=== PATIENT | female | born 1965 | race Caucasian/White ===

== ENCOUNTER → 2016-08-12 | Outpatient (CLI) | payer BC ==
[2016-08-12 10:53] LABS: Basophils % (A) 1 %; CH 32.4; CHCM 34.3; Eosinophils # (A) 0.1 k/uL (0-0.7); Eosinophils % (A) 2 %; HCT 45.3 % (34.0-46.0); HDW 2.61; Luc # (Auto) 0.19; Luc % (Auto) 3; Lymphocytes # (A) 1.5 k/uL (1.0-4.8); Lymphocytes % (A) 26 %; MCH 31.4 pg (25.0-35.0); MCHC 33.1 g/dL (31.0-37.0); Mean Platelet Volume 6.9; Monocytes # (A) 0.3 k/uL (0-1.0); Monocytes % (A) 5 %; Neutrophils # (A) 3.7 k/uL (1.3-7.7); Neutrophils % (A) 63 %; RBC 4.77 m/uL (3.80-5.40); RDW 12.3 % (11.5-15.5); WBC 5.9 k/uL (3.8-10.6); WBC (Perox) 6.32
== END | disposition home or self-care (01) ==
LOC: LABPAT 10:35
PROVIDERS: ATTEND Orthopaedic Surgery
DX: Z01.818 Encounter for other preprocedural examination (principal); T84.89XA Other specified complication of internal orthopedic prosthetic devices, implants and grafts, initial encounter
CPT/HCPCS: 80051; 85025

== ENCOUNTER 2016-08-19 12:21 | Day surgery (SDC) | payer BC ==
[2016-08-14 13:29] VITALS: BMI 33.9
--- NOTE | 2016-08-18 12:20 | HP ---
DATE OF ADMISSION: CHIEF COMPLAINT: Left ankle pain and swelling. 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 She notes prominence of her lateral hardware. She does have occasional lateral popping along with pain over the prominent hardware. She denies fevers or chills. PAST MEDICAL HISTORY: Significant for type 2 diabetes, hypothyroidism, and depression. PAST SURGICAL HISTORY: Significant for previous fixation of left lateral malleolar ankle fracture and syndesmotic fixation. CURRENT MEDICATIONS: 1. Lisinopril. 2. Mobic. 3. Metformin. 4. Simvastatin. 5. Synthroid. 6. Paroxetine. She notes allergies to PENICILLIN and VIBRAMYCIN. FAMILY HISTORY: Significant for cancer, diabetes and heart disease. SOCIAL HISTORY: Significant for 1/2 pack per day tobacco use. Sixteen-point review of systems otherwise reviewed and is noncontributory. On examination, the patient is approximately 5 feet 6 inches, 199 pounds, of endomorphic habitus. HEENT exam is nonfocal. Neck is supple. She has painless passive motion of her left hip. Straight leg raise is negative. She is nontender about the left knee and proximal fibula. On examination of her left ankle, she has moderate lateral swelling. There is no warmth or erythema. She has prominence of the syndesmotic screw laterally with tenderness over that. Ankle motion 15 degrees dorsiflexion, 50 degrees plantar flexion. Motor strength is 5/5 for inversion and eversion. Normal single limb heel raise is noted. X-rays to include AP, lateral, and mortise view of the left ankle obtained in the office show a previous open reduction and internal fixation of the lateral malleolus with syndesmotic fixation with backing out of the syndesmotic screw. IMPRESSION: 1. Status post open reduction internal fixation left lateral malleolar ankle fracture with syndesmotic fixation. 2. Irritating hardware left ankle. RECOMMENDATIONS: I talked to the patient regarding her treatment options. At this point, she opts to proceed with removal of the syndesmotic screw. We will likely perform that as an outpatient procedure utilizing local anesthetic and IV sedation. The risks and benefits were discussed at length in layman's terms. JEROME
[~2016-08-19 12:21] MED LIST: DEXAMETHASONE SOD PHOSPHATE 10 MG/ML 1 ML VIAL IV ONE; HYDROmorphone 1 MG/ML 1 ML SYRINGE IVP PRN; LACTATED RINGERS 1,000 ML IV SCH; MIDAZOLAM 2 MG/2 ML VIAL IV PRN; ONDANSETRON 4 MG/2 ML VIAL IVP ONE; SCOPOLAMINE 1.5MG/72HR PATCH TRANSDERM ONE; ceFAZolin 2 GM in SODIUM CHLORIDE 0.9% 100 ML IVPB ONE
[2016-08-19 12:41] VITALS: RESP 16; TEMP 98.2
[2016-08-19] MEDS ORDERED: LIDOCAINE 1% 20 ML VIAL (10MG/ML) FOR IV START INTRADERMA ONE (12:51)
[2016-08-19 13:07] LABS: Glucose,Whole Blood 165 mg/dL (75-99)
[2016-08-19] MEDS ORDERED: BUPIVACAINE (PF) 0.25% 30 ML VIAL SQ ONE (14:34)
[2016-08-19] MEDS ORDERED: LIDOCAINE 1% INJ 10MG/ML (20 ML MDV) ONE (14:34)
[2016-08-19] MEDS ORDERED: PROPOFOL 10 MG/ML 20 ML VIAL IV ONE (14:34)
[2016-08-19] MEDS ORDERED: MIDAZOLAM 2 MG/2 ML VIAL ONE (14:34)
[2016-08-19] MEDS ORDERED: fentaNYL (PF) 50 MCG/ML 2 ML AMP ONE (14:34)
--- NOTE | 2016-08-19 15:05 | P.OP ---
Date of Procedure: 08/19/16 Preoperative Diagnosis: Irritating hardware left ankle Postoperative Diagnosis: Same Procedure(s) Performed: Removal irritating hardware left ankle Implants: Anesthesia: MAC, local Surgeon: Luke Riddle Sawmill Relief Worker #1: Ivan Huff Estimated Blood Loss (ml): 2 Pathology: none sent Condition: stable Disposition: PACU Indications for Procedure: The patient's a 51-year-old female who previously underwent fixation for left ankle fracture with syndesmotic screw fixation presented with irritation secondary to the syndesmotic screw backing out. A discussion of the risks and benefits of hardware removal was made with patient. She opted to proceed. Informed consent was obtained. Operative Findings: As below Description of Procedure: The patient was brought to the operating room, and after induction of IV sedation the left lower extremity was prepped and draped in normal fashion. The syndesmotic screw was palpable along the lateral ankle. 10 mL of quarter percent plain Marcaine was injected into the area. A 1/2 cm incision was then made. The skin was incised sharply. Subcu tissues were divided bluntly. The screw was then easily removed. The wound was irrigated with normal saline. The skin was reprepped with simple 4-0 nylon suture. A sterile dressing was applied. The patient was awoken from sedation and transferred to the recovery room in good condition. Blood loss was estimated 2 mL. No complications were incurred. Sponge and needle counts were correct at the end the case.
[2016-08-19 15:15] LABS: Glucose,Whole Blood 161 mg/dL (75-99)
[2016-08-19 15:21] VITALS: BP 113/55; PULSE 83
== END 2016-08-19 15:38 | disposition home or self-care (01) ==
LOC: OR 12:21
PROVIDERS: ATTEND Orthopaedic Surgery
DX: T85.848A Pain due to other internal prosthetic devices, implants and grafts, initial encounter (principal); E11.9 Type 2 diabetes mellitus without complications; Z79.84 Long term (current) use of oral hypoglycemic drugs; I10 Essential (primary) hypertension; E78.5 Hyperlipidemia, unspecified; E03.9 Hypothyroidism, unspecified; Z87.891 Personal history of nicotine dependence; F32.9 Major depressive disorder, single episode, unspecified; Z79.82 Long term (current) use of aspirin; Z79.1 Long term (current) use of non-steroidal anti-inflammatories (NSAID); Z79.899 Other long term (current) drug therapy; Z88.1 Allergy status to other antibiotic agents; Z88.0 Allergy status to penicillin
CPT/HCPCS: 20680; J2250; J1100; J0690; J2405; J2001; J3010; J2704

== ENCOUNTER → 2016-09-01 | Outpatient (CLI) | payer BC ==
--- NOTE | 2016-09-01 12:22 | BD ---
EXAMINATION TYPE: MG DEXA axial skeleton. DATE OF EXAM: 09/01/2016 COMPARISON: 2014 CLINICAL HISTORY: 51-year-old female screening osteoporosis Height: 5'5 Weight: 215 FRAX RISK QUESTIONS: Alcohol (3 or more units per day): no Family History (Parent hip fracture): no Glucocorticoids (More than 3mos): no (Ex: prednisone, prednisolone, methylprednisolone, dexamethasone, and hydrocortisone). History of Fracture in Adulthood: yes Secondary Osteoporosis: 1. Type 1 Diabetes: no 2. Hyperthyroidism: no 3. Menopause before 45: no 4. Malnutrition: no 5. Chronic liver disease: no Rheumatoid Arthritis: no Current Tobacco Use: no RISK FACTORS HISTORY OF: Surgery to Spine/ When: 2012 Postmenopausal woman: yes MEDICATIONS: Thyroid Medications: Which medication: Levothyroxine How Lon years Additional Medications: diabetes type 2, cholesterol, depression Additional History: EXAM MEASUREMENTS: Bone mineral densitometry was performed using the [employer] System. Bone mineral density about the R hip (g/cm2):0.850 Bone mineral density about the L hip (g/cm2): 0.836 T Score values are as follows: -----R Neck: -1.4 -----L Neck: -1.5 -----R Total: 0.2 -----L Total: -0.1 Bone mineral density has: Decreased -2.6% since study of: 08/14/2014 IMPRESSION: Osteopenia as indicated by T score values in both hips. Spine not imaged due to prior surgery. There is slightly increased risk of fracture and the patient may be considered for treatment. Re-Screen 2-5 years. NOTE: T-SCORE=SD OF THE YOUNG ADULT MEAN.
--- NOTE | 2016-09-02 07:28 | MM ---
Reason for exam: screening (asymptomatic). Last mammogram was performed 2 years and 1 month ago. History: Cancelled Left Mammotome of the left breast, November 15, 2009. Took hormonal contraceptives for 5 years. Physical Findings: A clinical breast exam by your physician is recommended on an annual basis and results should be correlated with mammographic findings. MG Screening Mammo w CAD Bilateral CC and MLO view(s) were taken. Prior study comparison: August 14, 2014, bilateral MG screening mammo w CAD. October 14, 2012, bilateral digital screening mammo w/CAD. There are scattered fibroglandular densities. There is no discrete abnormality. ASSESSMENT: Negative, BI-RAD 1 RECOMMENDATION: Routine screening mammogram of both breasts in 1 year.
== END | disposition home or self-care (01) ==
LOC: RADMAMWWP 10:08
PROVIDERS: ATTEND Family Medicine
DX: Z13.820 Encounter for screening for osteoporosis (principal); Z12.31 Encounter for screening mammogram for malignant neoplasm of breast; M85.80 Other specified disorders of bone density and structure, unspecified site
CPT/HCPCS: 77080; G0202